=== PATIENT | female | born 1955 | race Caucasian/White ===

== ENCOUNTER 2017-10-06 12:04 | Outpatient (CLI) | payer OTHER ==
[~2017-10-06 12:04] MED LIST: SYNTHROID175 MCG PO
== END 2017-10-06 15:30 | disposition home or self-care (01) ==
LOC: RAD 12:04 → RAD 501 12:04 → RAD 15:30
DX: M25.552 Pain in left hip (principal); M25.562 Pain in left knee; T84.84XA Pain due to internal orthopedic prosthetic devices, implants and grafts, initial encounter; M25.572 Pain in left ankle and joints of left foot; M79.671 Pain in right foot

== ENCOUNTER 2023-03-25 06:00 | Day surgery (SDC) | payer OTHER ==
[2023-03-25] MEDS ORDERED: MACROBID 100 M100 MG PO (09:51)
[2023-03-25] MEDS ORDERED: TRAM1TAB98 PO (09:51)
== END 2023-03-25 13:55 | disposition home or self-care (01) ==
LOC: CIR.AMB 06:00
PROVIDERS: ATTEND Obstetrics & Gynecology Gynecology
DX: N81.11 Cystocele, midline (principal); I10 Essential (primary) hypertension; Z20.822 Contact with and (suspected) exposure to COVID-19